=== PATIENT | female | born 1960 | race Caucasian/White ===

== ENCOUNTER 2017-08-02 12:18 | Day surgery (SDC) | payer OTHER ==
[2017-08-02] MEDS ORDERED: PROPOFOL 20 ML (14:54)
== END 2017-08-02 16:37 | disposition home or self-care (01) ==
LOC: GIL 12:18
DX: Z12.11 Encounter for screening for malignant neoplasm of colon (principal); E78.5 Hyperlipidemia, unspecified
CPT/HCPCS: 45378